=== PATIENT | male | born 1965 | race Caucasian/White ===

== ENCOUNTER → 2019-07-07 10:14 | Outpatient (BNVA) | payer MEDICARE, MEDICAID, SELFPAY | PROVIDERS: Family Provider Physician Assistant; PCP Family Medicine; Visit Provider Nurse Practitioner | DX: F20.89 Other schizophrenia (principal); F33.0 Major depressive disorder, recurrent, mild | CPT/HCPCS: 80061; 83036; 99214 ==

== ENCOUNTER → 2019-10-06 07:38 | Outpatient (BNVA) | payer MEDICARE, MEDICAID, SELFPAY | PROVIDERS: Family Provider Physician Assistant; PCP Family Medicine; Visit Provider Nurse Practitioner | DX: F20.89 Other schizophrenia (principal); F33.0 Major depressive disorder, recurrent, mild | CPT/HCPCS: 99213 ==

== ENCOUNTER → 2020-01-30 07:50 | Outpatient (BNVA) | payer MEDICARE, MEDICAID, SELFPAY | PROVIDERS: Family Provider Physician Assistant; PCP Family Medicine; Visit Provider Nurse Practitioner | DX: F33.0 Major depressive disorder, recurrent, mild (principal); F20.89 Other schizophrenia | CPT/HCPCS: 99213 ==

== ENCOUNTER → 2020-05-13 08:10 | Outpatient (BNVA) | payer MEDICARE, MEDICAID, SELFPAY | PROVIDERS: Family Provider Physician Assistant; PCP Family Medicine; Visit Provider Nurse Practitioner | DX: F33.0 Major depressive disorder, recurrent, mild (principal); F20.89 Other schizophrenia | CPT/HCPCS: 99213 ==

== ENCOUNTER → 2020-08-09 07:33 | Outpatient (BNVA) | payer MEDICARE, MEDICAID, SELFPAY | PROVIDERS: Family Provider Physician Assistant; PCP Family Medicine; Visit Provider Nurse Practitioner | DX: F20.89 Other schizophrenia (principal); F33.0 Major depressive disorder, recurrent, mild | CPT/HCPCS: 99214 ==

== ENCOUNTER → 2020-09-10 09:05 | Outpatient (BNVA) | payer MEDICARE, MEDICAID, SELFPAY | PROVIDERS: Family Provider Physician Assistant; PCP Family Medicine; Visit Provider Nurse Practitioner | DX: F33.0 Major depressive disorder, recurrent, mild (principal); F20.89 Other schizophrenia | CPT/HCPCS: 99214 ==

== ENCOUNTER → 2020-10-06 10:05 | Outpatient (BNVA) | payer MEDICARE, MEDICAID, SELFPAY | PROVIDERS: Family Provider Physician Assistant; PCP Family Medicine; Visit Provider Nurse Practitioner | DX: F33.0 Major depressive disorder, recurrent, mild (principal); F20.89 Other schizophrenia | CPT/HCPCS: 99214 ==

== ENCOUNTER → 2020-12-31 09:10 | Outpatient (BNVA) | payer MEDICARE, MEDICAID, SELFPAY | PROVIDERS: Family Provider Physician Assistant; PCP Family Medicine; Visit Provider Nurse Practitioner | DX: F33.0 Major depressive disorder, recurrent, mild (principal); F20.89 Other schizophrenia | CPT/HCPCS: 80061; 83036; 99214 ==

== ENCOUNTER → 2021-03-31 07:42 | Outpatient (BNVA) | payer MEDICARE, MEDICAID, SELFPAY | PROVIDERS: Family Provider Physician Assistant; PCP Family Medicine; Visit Provider Nurse Practitioner | DX: F33.0 Major depressive disorder, recurrent, mild (principal); F20.89 Other schizophrenia | CPT/HCPCS: 99214 ==

== ENCOUNTER → 2021-06-14 07:56 | Outpatient (BNVA) | payer MEDICARE, MEDICAID, SELFPAY | PROVIDERS: Family Provider Physician Assistant; PCP Family Medicine; Visit Provider Nurse Practitioner | DX: F33.0 Major depressive disorder, recurrent, mild (principal); F20.89 Other schizophrenia | CPT/HCPCS: 99214 ==

== ENCOUNTER → 2021-09-13 09:09 | Outpatient (BNVA) | payer MEDICARE, MEDICAID, SELFPAY | PROVIDERS: Family Provider Physician Assistant; PCP Family Medicine; Visit Provider Nurse Practitioner | DX: F33.0 Major depressive disorder, recurrent, mild (principal); F20.89 Other schizophrenia | CPT/HCPCS: 99214 ==